=== PATIENT | female | born 1990 | race American Indian/Alaskan Native ===

== ENCOUNTER 2019-12-01 21:27 | Inpatient (IN) | payer MEDICAID ==
--- NOTE | 2019-12-01 23:34 | Ultrasound Report ---
Limited OB ultrasound INDICATION: Amniotic fluid leakage FINDINGS: There is a single intrauterine in a cephalic presentation. Amniotic fluid index i s 6.2 cm which is decreased. heart rate is 116 bpm. IMPRESSION: The amniotic fluid index is 6.2 cm which is decreased. Signer Name: Chirag Harrell MD Signed: 12/01/2019 11:29 PM Workstation Name: [id number]
[2019-12-01] MEDS ORDERED: ePHEDrine SULFATE 50 MG/1 ML INJ IV PRN (23:48)
[2019-12-01] MEDS ORDERED: MINERAL OIL 30 ML ORAL LIQD PO PRN (23:48)
[2019-12-01] MEDS ORDERED: TERBUTALINE 1 MG/1 ML INJ SUB-Q PRN (23:48)
[2019-12-01] MEDS ORDERED: TERBUTALINE 1 MG/1 ML INJ IVP PRN (23:48)
[2019-12-01] MEDS ORDERED: LIDOCAINE (2%) 20 MG/1 ML VIAL 20 ML MDV INFILTRATI ONE (23:48)
[2019-12-02 01:56] LABS: Hematocrit 30.3 % (30.3-42.9); Hemoglobin 10.2 gm/dl (10.1-14.3); Mean Corpuscular HGB Conc 34 % (30-34); Mean Corpuscular Volume 99 fl (79-97); Platelet Count 165 K/mm3 (140-440); Red Blood Count 3.06 M/mm3 (3.65-5.03); Red Cell Distribution Width 13.4 % (13.2-15.2)
[2019-12-02] MEDS: LACTATED RINGERS 1,000 ML IV SCH ×3 (02:26→18:43)
[2019-12-02] MEDS ORDERED: OXYTOCIN DRIP 30,000 MILLIUNITS/500 ML BAG IV ONE (10:00)
[2019-12-02] MEDS ORDERED: BUTORPHANOL 2 MG/1 ML INJ IV ONE (12:37)
--- NOTE | 2019-12-02 15:04 | History and Physical Report ---
History of Present Illness Date of examination: 12/02/19 Date of admission: 12/01/19 23:57 Chief complaint: Admitted with SROM 2030HRS 12/01/2019. Uneventful . History of present illness: Admitted with SROM 2030HRS 12/01/2019. Uneventful . NOMAN 12/12/2019 Past History Past Medical History: no pertinent history - Obstetrical History Expected Date of Delivery: 12/12/19 Actual Gestation: 38 Week(s) 4 Day(s) : 4 Para: 2 Medications and Allergies Allergies Allergy/AdvReac Type Severity Reaction Status Date / Time No Known Allergies Allergy Verified 12/01/19 21:51 Home Medications Medication Instructions Recorded Confirmed Last Taken Type Vitamin 1 tab PO DAILY 12/02/19 12/02/19 11/30/19 10:00 History 1 Active Meds: Active Medications Ephedrine Sulfate (Ephedrine Sulfate) 10 mg IV Q2M PRN PRN Reason: Hypotension Oxytocin/Sodium Chloride (Pitocin/Ns 20 Unit/1000ml Drip) 20 units in 1,000 mls @ 125 mls/hr IV DIRECT JESSY Lactated Ringer's (Lactated Ringers) 1,000 mls @ 125 mls/hr IV DIRECT JESSY Last Admin: 12/02/19 11:52 Dose: 125 mls/hr Documented by: Oxytocin/Sodium Chloride (Pitocin/Ns 30 Unit/500ml) 30,000 milliunits in 500 mls @ 2 mls/hr IV DIRECT ONE; Protocol Stop: 12/12/19 19:59 Last Titration: 12/02/19 12:52 Dose: 15 milliunits/min, 15 mls/hr Documented by: Mineral Oil (Mineral Oil) 30 ml PO QHS PRN PRN Reason: Constipation Terbutaline Sulfate (Brethine) 0.25 mg SUB-Q ONCE PRN PRN Reason: Hyperstimulation/Hypertonicity Terbutaline Sulfate (Brethine) 0.25 mg IVP ONCE PRN PRN Reason: Hyperstimulation/Hypertonicity Review of Systems All systems: negative - Vital Signs Vital signs: Vital Signs Temp 98.6 F 12/01/19 21:55 Temp Pulse Resp BP Pulse Ox 98.2 F 85 18 96/52 99 12/02/19 10:04 12/02/19 14:55 12/02/19 10:04 12/02/19 13:50 12/02/19 14:55 - Physical Exam Lungs: Positive: Normal air movement Abdomen: Positive: normal appearance, distention. Negative: tenderness Deep Tendon Reflex Grade: Normal +2 - Obstetrical FHR: category 1 Results Result Diagrams: 12/02/19 01:36 Abnormal lab results 12/02/19 Range/Units 01:36 WBC 12.4 H (4.5-11.0) K/mm3 RBC 3.06 L (3.65-5.03) M/mm3 MCV 99 H (79-97) fl MCH 33 H (28-32) pg All other labs normal. Assessment and Plan - Patient Problems (1) Term Current Visit: Yes Status: Acute Plan to address problem: Admitted for conduct of labor and delivery.Currently on pitocin.
[2019-12-03] MEDS: LACTATED RINGERS 1,000 ML IV SCH (02:55)
--- NOTE | 2019-12-03 10:31 | Progress Note ---
Assessment and Plan - Patient Problems (1) 38 weeks gestation of Current Visit: Yes Status: Acute (2) SROM (spontaneous rupture of membranes) Current Visit: Yes Status: Acute (3) Encounter for induction of labor Current Visit: Yes Status: Acute Plan to address problem: Continue current management Oxytocin @ 20 mu/min. Initiated 12/02 @ 10am. Order given to discontinue Pitocin and for patient to have a regular diet and take a shower Will restart Pitocin per protocol Anticipate vaginal delivery Subjective - Subjective Date of service: 12/03/19 Principal diagnosis: IUP @ 38w6d; SROM Interval history: see H&P Patient reports: loss of fluid, movement normal, no vaginal bleeding, no contractions Objective - Vital Signs Vital Signs: Vital Signs - 12hr 12/02/19 12/02/19 12/02/19 22:21 22:26 22:31 Temperature Pulse Rate 97 H 91 H 92 H Blood Pressure O2 Sat by Pulse 98 97 97 Oximetry 12/02/19 12/02/19 12/02/19 22:36 22:41 22:46 Temperature Pulse Rate 88 94 H 93 H Blood Pressure O2 Sat by Pulse 97 97 98 Oximetry 12/02/19 12/02/19 12/02/19 22:51 22:56 23:01 Temperature Pulse Rate 92 H 84 86 Blood Pressure O2 Sat by Pulse 97 97 99 Oximetry 12/02/19 12/02/19 12/02/19 23:05 23:06 23:11 Temperature Pulse Rate 85 95 H 92 H Blood Pressure 103/44 O2 Sat by Pulse 99 99 Oximetry 12/02/19 12/02/19 12/02/19 23:16 23:18 23:21 Temperature Pulse Rate 89 86 85 Blood Pressure O2 Sat by Pulse 98 87 90 Oximetry 12/02/19 12/02/19 12/02/19 23:26 23:31 23:36 Temperature Pulse Rate 94 H 76 78 Blood Pressure O2 Sat by Pulse 94 98 98 Oximetry 12/02/19 12/02/19 12/02/19 23:41 23:46 23:51 Temperature Pulse Rate 81 80 90 Blood Pressure O2 Sat by Pulse 98 97 97 Oximetry 12/02/19 12/03/19 12/03/19 23:56 00:01 00:05 Temperature Pulse Rate 83 76 79 Blood Pressure 83/44 O2 Sat by Pulse 97 98 Oximetry 01/27/20 01/27/20 01/27/20 00:06 00:11 00:16 Temperature Pulse Rate 95 H 79 78 Blood Pressure O2 Sat by Pulse 99 98 98 Oximetry 12/03/19 12/03/19 12/03/19 00:21 00:26 00:31 Temperature Pulse Rate 74 85 76 Blood Pressure O2 Sat by Pulse 98 97 99 Oximetry 12/03/19 12/03/19 12/03/19 00:36 00:41 00:46 Temperature Pulse Rate 74 87 74 Blood Pressure O2 Sat by Pulse 99 99 99 Oximetry 12/03/19 12/03/19 12/03/19 00:51 00:56 01:01 Temperature Pulse Rate 82 79 81 Blood Pressure O2 Sat by Pulse 99 99 99 Oximetry 12/03/19 12/03/19 12/03/19 01:05 01:06 01:11 Temperature Pulse Rate 77 82 85 Blood Pressure 95/51 O2 Sat by Pulse 100 98 Oximetry 12/03/19 12/03/19 12/03/19 01:16 01:21 01:23 Temperature Pulse Rate 83 84 93 H Blood Pressure O2 Sat by Pulse 99 99 81 L Oximetry 12/03/19 12/03/19 12/03/19 01:32 01:37 01:42 Temperature Pulse Rate 92 H 77 69 Blood Pressure O2 Sat by Pulse 100 98 99 Oximetry 12/03/19 12/03/19 12/03/19 01:47 01:52 01:57 Temperature Pulse Rate 75 76 80 Blood Pressure O2 Sat by Pulse 99 100 99 Oximetry 12/03/19 12/03/19 12/03/19 02:02 02:07 02:09 Temperature 98.2 F Pulse Rate 85 83 Blood Pressure 91/54 O2 Sat by Pulse 98 98 Oximetry 12/03/19 12/03/19 12/03/19 02:12 02:17 02:22 Temperature Pulse Rate 86 87 84 Blood Pressure O2 Sat by Pulse 98 99 98 Oximetry 12/03/19 12/03/19 12/03/19 02:27 02:32 02:37 Temperature Pulse Rate 85 80 77 Blood Pressure O2 Sat by Pulse 98 98 98 Oximetry 12/03/19 12/03/19 12/03/19 02:42 02:47 02:52 Temperature Pulse Rate 81 89 82 Blood Pressure O2 Sat by Pulse 99 98 99 Oximetry 12/03/19 12/03/19 12/03/19 02:57 03:02 03:05 Temperature Pulse Rate 81 89 83 Blood Pressure 89/50 O2 Sat by Pulse 98 98 Oximetry 12/03/19 12/03/19 12/03/19 03:07 03:12 03:17 Temperature Pulse Rate 81 84 84 Blood Pressure O2 Sat by Pulse 98 98 98 Oximetry 12/03/19 12/03/19 12/03/19 03:22 03:27 03:32 Temperature Pulse Rate 82 81 86 Blood Pressure O2 Sat by Pulse 98 97 98 Oximetry 12/03/19 12/03/19 12/03/19 03:37 03:42 03:47 Temperature Pulse Rate 85 84 91 H Blood Pressure O2 Sat by Pulse 98 98 98 Oximetry 12/03/19 12/03/19 12/03/19 03:52 03:57 04:02 Temperature Pulse Rate 85 84 79 Blood Pressure O2 Sat by Pulse 98 98 98 Oximetry 12/03/19 12/03/19 12/03/19 04:05 04:07 04:12 Temperature Pulse Rate 66 73 72 Blood Pressure 92/50 O2 Sat by Pulse 98 98 Oximetry 12/03/19 12/03/19 12/03/19 04:17 04:22 04:27 Temperature Pulse Rate 77 82 90 Blood Pressure O2 Sat by Pulse 98 98 100 Oximetry 12/03/19 12/03/19 12/03/19 04:32 04:37 04:42 Temperature Pulse Rate 75 76 79 Blood Pressure O2 Sat by Pulse 98 100 98 Oximetry 12/03/19 12/03/19 12/03/19 04:47 04:52 04:57 Temperature Pulse Rate 74 72 71 Blood Pressure O2 Sat by Pulse 99 99 99 Oximetry 12/03/19 12/03/19 12/03/19 05:02 05:05 05:07 Temperature Pulse Rate 76 75 81 Blood Pressure 87/50 O2 Sat by Pulse 99 99 Oximetry 12/03/19 12/03/19 12/03/19 05:12 05:17 05:22 Temperature Pulse Rate 76 76 78 Blood Pressure O2 Sat by Pulse 99 99 99 Oximetry 12/03/19 12/03/19 12/03/19 05:27 05:32 05:37 Temperature Pulse Rate 76 75 88 Blood Pressure O2 Sat by Pulse 99 98 98 Oximetry 12/03/19 12/03/19 12/03/19 05:42 05:47 05:52 Temperature Pulse Rate 85 88 79 Blood Pressure O2 Sat by Pulse 99 100 100 Oximetry 12/03/19 12/03/19 12/03/19 05:57 06:02 06:05 Temperature Pulse Rate 79 73 80 Blood Pressure 103/65 O2 Sat by Pulse 99 100 Oximetry 12/03/19 12/03/19 12/03/19 06:07 06:12 06:17 Temperature Pulse Rate 78 84 79 Blood Pressure O2 Sat by Pulse 99 100 99 Oximetry 12/03/19 12/03/19 12/03/19 06:22 06:27 06:32 Temperature Pulse Rate 82 81 77 Blood Pressure O2 Sat by Pulse 99 99 100 Oximetry 12/03/19 12/03/19 12/03/19 06:37 06:42 06:47 Temperature Pulse Rate 82 81 80 Blood Pressure O2 Sat by Pulse 100 99 99 Oximetry 12/03/19 12/03/19 12/03/19 07:37 07:42 07:44 Temperature Pulse Rate 93 H 85 88 Blood Pressure 106/69 O2 Sat by Pulse 100 99 Oximetry 12/03/19 12/03/19 12/03/19 07:47 07:52 07:57 Temperature Pulse Rate 87 95 H 86 Blood Pressure O2 Sat by Pulse 98 99 98 Oximetry 12/03/19 12/03/19 12/03/19 08:02 08:05 08:07 Temperature Pulse Rate 95 H 88 92 H Blood Pressure 114/64 O2 Sat by Pulse 100 99 Oximetry 12/03/19 12/03/19 12/03/19 08:12 08:17 08:22 Temperature Pulse Rate 105 H 109 H 102 H Blood Pressure O2 Sat by Pulse 99 98 99 Oximetry 12/03/19 12/03/19 12/03/19 08:25 08:27 08:32 Temperature 98.1 F Pulse Rate 105 H 91 H Blood Pressure O2 Sat by Pulse 98 99 Oximetry 12/03/19 12/03/19 12/03/19 08:37 08:42 08:47 Temperature Pulse Rate 104 H 93 H 106 H Blood Pressure O2 Sat by Pulse 99 99 99 Oximetry 12/03/19 12/03/19 12/03/19 08:52 08:57 09:02 Temperature Pulse Rate 99 H 98 H 102 H Blood Pressure O2 Sat by Pulse 99 99 98 Oximetry 12/03/19 12/03/19 12/03/19 09:05 09:07 09:12 Temperature Pulse Rate 109 H 112 H 105 H Blood Pressure 108/62 O2 Sat by Pulse 99 99 Oximetry 12/03/19 12/03/19 12/03/19 09:17 09:22 09:27 Temperature Pulse Rate 99 H 94 H 111 H Blood Pressure O2 Sat by Pulse 98 98 99 Oximetry 12/03/19 12/03/19 12/03/19 09:32 09:37 09:42 Temperature Pulse Rate 109 H 109 H 105 H Blood Pressure O2 Sat by Pulse 98 99 98 Oximetry 12/03/19 12/03/19 12/03/19 09:47 09:52 09:57 Temperature Pulse Rate 102 H 115 H 104 H Blood Pressure O2 Sat by Pulse 99 98 98 Oximetry 12/03/19 12/03/19 12/03/19 10:02 10:06 10:07 Temperature Pulse Rate 107 H 120 H 110 H Blood Pressure 118/68 O2 Sat by Pulse 98 98 Oximetry 12/03/19 10:12 Temperature Pulse Rate 109 H Blood Pressure O2 Sat by Pulse 100 Oximetry - Exam FHR: auscultation normal, category 1 FHR comments: baseline 140, moderate variability, 15x15 accels, no decels Uterine Contraction Monitor Mode: External Cervical Dilatation: 2.5 Cervical Effacement Percentage: 50 station: -2 Uterine Contraction Pattern: Irregular - Labs Labs: Abnormal Labs 12/02/19 01:36 WBC 12.4 H RBC 3.06 L MCV 99 H MCH 33 H
[2019-12-03] MEDS ORDERED: BUTORPHANOL 2 MG/1 ML INJ IV PRN (16:02)
[2019-12-03] MEDS ORDERED: fentaNYL 100 MCG/2 ML INJ IV ONE (16:14)
[2019-12-03] MEDS ORDERED: DEXMEDETOMIDINE 200 MCG/2 ML VIAL IV ONE (17:52)
--- NOTE | 2019-12-03 18:14 | Anesthesia Consultation ---
Anesthesia Consult and Med Hx Date of service: 12/03/19 - Airway Anesthetic Teeth Evaluation: Good ROM Head & Neck: Adequate Mental/Hyoid Distance: Adequate Mallampati Class: Class II Intubation Access Assessment: Good - Pulmonary Exam CTA: Yes - Cardiac Exam Cardiac Exam: RRR - Pre-Operative Health Status ASA Pre-Surgery Classification: ASA2, Emergency Proposed Anesthetic Plan: Epidural - Pulmonary Hx Asthma: No (last inhaler use 1st trimester) COPD: No Hx Pneumonia: No - Cardiovascular System Hx Hypertension: No - Central Nervous System Hx Seizures: No Hx Psychiatric Problems: No - Endocrine Hx Renal Disease: No Hx End Stage Renal Disease: No Hx Hypothyroidism: No Hx Hyperthyroidism: No - Hematic Hx Anemia: No Hx Sickle Cell Disease: No - Other Systems Hx Alcohol Use: No
[2019-12-03] MEDS ORDERED: ePHEDrine SULFATE 50 MG/1 ML INJ IV PRN (18:15)
[2019-12-03] MEDS ORDERED: NALOXONE 2 MG/2 ML INJ IV PRN (18:15)
[2019-12-03] MEDS ORDERED: fentaNYL-BUPIV 2 MCG/ML-0.125% 200 MCG/100 ML BAG EPIDURAL ONE (18:16)
[2019-12-03] MEDS ORDERED: BUPIVACAINE/PF (0.5%) 5 MG/1 ML 10 ML VIAL INFILTRATI ONE (18:55)
[2019-12-03] MEDS ORDERED: fentaNYL-BUPIV 2 MCG/ML-0.125% 200 MCG/100 ML BAG EPIDURAL SCH (19:00)
--- NOTE | 2019-12-03 19:45 | Procedure Note ---
OB Delivery Note - Delivery Date of Delivery: 12/03/19 (1922) Surgeon: MORRIS MARC (CN) Estimated blood loss: 100cc - Vaginal Delivery presentation: vertex Delivery position: OA Intrapartum events: none Delivery induction: oxytocin Delivery augmentation: rupture of membranes (AROM @ 14:05, clear), pitocin Delivery monitor: external FHT, external uterine Route of delivery: (19:23) Delivery placenta: spontaneous (19:28) Delivery cord: 3 umbilical vessels Episiotomy: none Delivery laceration: none Anesthesia: epidural Delivery comments: of a vigorous term 6 lbs 14 oz male on 12/03/19 @ 19:23. Baby placed [id number] on maternal abdomen. After 3 mins, umbilical cord double-clamped by me and cut by FOB. Spontaneous delivery of placenta @ 19:28. Small lochia noted. Fundal massage and IV Pitocin bolus initiated. Fundus F/ML/U. Placenta intact, was discarded. Perineum intact. No lacerations present. Mom and baby in stable condition. - Infant A at 1 minute: 8 at 5 minutes: 9 Infant Gender: Male (6 lbs 14 oz (3141 gm); 19 in)
[2019-12-03] MEDS ORDERED: ONDANSETRON 4 MG/2 ML INJ IV PRN (19:47)
[2019-12-03] MEDS ORDERED: diphenhydrAMINE 25 MG CAP PO PRN (19:47)
[2019-12-03] MEDS ORDERED: ACETAMINOPHEN 325 MG TAB PO PRN (19:47)
[2019-12-03] MEDS ORDERED: WITCH HAZEL/ GLYCERIN PAD TP PRN (19:47)
[2019-12-03] MEDS ORDERED: LANOLIN/ZINC/DIMETHICONE (LANSINOH) 7 GM TP PRN (19:47)
[2019-12-03] MEDS ORDERED: PROMETHAZINE 25 MG TAB PO PRN (19:47)
[2019-12-03] MEDS ORDERED: MAGNESIUM HYDROXIDE (MOM) ORAL LIQD UDC PO PRN (19:47)
[2019-12-03] MEDS ORDERED: PROMETHAZINE 25 MG RECT SUPP PR PRN (19:47)
[2019-12-03] MEDS: OXYTOCIN 20 UNIT/1000ML DRIP 20 UNITS/1,000 ML BAG IV SCH ×2 (20:43→20:45)
[2019-12-04] MEDS: IBUPROFEN 600 MG TAB PO SCH ×3 (02:01→21:36)
[2019-12-04 07:44] LABS: Hematocrit 27.7 % (30.3-42.9); Hemoglobin 9.5 gm/dl (10.1-14.3)
[2019-12-04] MEDS: PRENATAL VIT27-FE FUMARATE-FOLIC ACID VIT TAB PO SCH (09:51)
[2019-12-04] MEDS: HYDROcodone/ACETAMINOPHEN 5-325 MG TAB PO PRN ×2 (09:51→17:54)
[2019-12-04] MEDS: FERROUS SULFATE 325 MG TAB PO SCH (09:58)
--- NOTE | 2019-12-04 11:17 | Progress Note ---
Assessment and Plan - Patient Problems (1) Status post normal vaginal delivery Current Visit: Yes Status: Acute Plan to address problem: D/C home today F/U at office in 6 wks for routine PP visit (2) Anemia Current Visit: Yes Status: Acute Qualifiers: Anemia type: iron deficiency Plan to address problem: Asymptomatic Continue daily oral iron supplementation as directed with OJ Increase iron rich foods into diet Subjective - Subjective Date of service: 12/04/19 Principal diagnosis: S/P , PPD#1; Anemia Interval history: See admission H&P; OB delivery summary and PP progress notes Patient reports: appetite normal, voiding normally, pain well controlled, flatus, ambulating normally, other (Desires to go home today) : doing well, bottle feeding (and ) Objective - Vital Signs Latest vital signs: Vital Signs Temp Pulse Resp BP Pulse Ox 12/04/19 08:55 98.3 F 79 16 99/68 99 12/04/19 02:01 18 12/04/19 00:33 98.8 F 77 20 101/59 100 12/03/19 23:49 173 H 81 L 12/03/19 23:48 122 H 81 L 12/03/19 23:45 91 H 98/53 12/03/19 23:44 81 L 12/03/19 23:43 71 84 12/03/19 23:38 25 L 95 12/03/19 23:33 86 100 12/03/19 23:29 74 110/59 12/03/19 23:28 85 100 12/03/19 23:23 86 100 12/03/19 23:18 96 H 100 12/03/19 23:14 85 109/62 12/03/19 23:13 102 H 99 12/03/19 23:08 75 100 12/03/19 23:03 97 H 100 12/03/19 22:59 84 110/68 12/03/19 22:58 93 H 100 12/03/19 22:56 88 93 12/03/19 22:53 86 100 12/03/19 22:48 90 99 12/03/19 22:43 79 97 12/03/19 22:40 62 94 12/03/19 22:38 113 H 98 12/03/19 22:33 83 99 12/03/19 22:29 79 111/60 12/03/19 22:28 81 99 12/03/19 22:23 79 100 12/03/19 22:18 93 H 100 12/03/19 22:14 90 105/61 12/03/19 22:13 93 H 100 12/03/19 22:08 84 99 12/03/19 22:03 75 101/59 100 12/03/19 21:58 151 H 84 12/03/19 21:57 134 H 85 12/03/19 21:52 70 100 12/03/19 21:47 79 100 12/03/19 21:42 89 100 12/03/19 21:37 65 100 12/03/19 21:32 76 100 12/03/19 21:29 70 104/64 12/03/19 21:27 73 100 12/03/19 21:22 78 100 12/03/19 21:20 97.4 F L 12/03/19 21:17 87 100 12/03/19 21:14 71 107/66 12/03/19 21:12 76 100 12/03/19 21:07 66 100 12/03/19 21:02 75 100 12/03/19 21:00 72 102/62 12/03/19 20:57 74 100 12/03/19 20:52 76 100 12/03/19 20:47 72 98 12/03/19 20:44 75 96/57 12/03/19 20:42 82 100 12/03/19 20:37 81 99 12/03/19 20:32 77 99 12/03/19 20:29 76 104/61 12/03/19 20:27 85 99 12/03/19 20:22 84 100 12/03/19 20:17 78 99 12/03/19 20:14 86 104/65 12/03/19 20:12 86 98 12/03/19 20:07 75 98 12/03/19 20:02 83 100 12/03/19 19:59 80 109/69 12/03/19 19:57 87 98 12/03/19 19:52 85 99 12/03/19 19:47 78 98 12/03/19 19:44 87 103/60 12/03/19 19:42 84 99 12/03/19 19:37 91 H 97 12/03/19 19:32 89 98 12/03/19 19:29 94 H 111/61 12/03/19 19:27 93 H 99 12/03/19 19:22 99 H 100 12/03/19 19:21 96 H 120/72 12/03/19 19:17 93 H 100 12/03/19 19:12 91 H 100 12/03/19 19:07 76 98 12/03/19 19:02 96 H 99 12/03/19 18:57 79 100 12/03/19 18:52 81 99 12/03/19 18:48 74 118/67 12/03/19 18:47 80 99 12/03/19 18:46 78 116/67 12/03/19 18:44 82 109/60 12/03/19 18:42 79 105/60 98 12/03/19 18:40 83 108/58 12/03/19 18:38 81 102/56 12/03/19 18:37 80 98 12/03/19 18:36 85 109/59 12/03/19 18:34 79 101/57 12/03/19 18:32 78 102/57 98 12/03/19 18:30 81 107/58 12/03/19 18:28 83 106/56 12/03/19 18:27 86 98 12/03/19 18:26 82 105/55 12/03/19 18:24 87 108/57 12/03/19 18:22 83 106/58 99 12/03/19 18:20 84 107/61 12/03/19 18:18 88 110/57 12/03/19 18:17 93 H 99 12/03/19 18:16 89 110/56 12/03/19 18:14 83 110/57 12/03/19 18:12 93 H 114/63 99 12/03/19 18:10 86 122/67 12/03/19 18:08 84 117/64 12/03/19 18:07 88 100 12/03/19 18:06 84 119/66 12/03/19 18:04 100 H 119/63 12/03/19 18:02 93 H 117/63 100 12/03/19 18:00 99 H 109/59 12/03/19 17:58 106 H 123/75 12/03/19 17:57 109 H 100 12/03/19 17:13 88 114/65 12/03/19 16:40 98.0 F 12/03/19 16:06 102 H 113/62 12/03/19 16:03 96 H 100 12/03/19 15:58 108 H 99 12/03/19 15:53 89 100 12/03/19 15:48 101 H 100 12/03/19 15:43 99 H 100 12/03/19 15:38 114 H 99 12/03/19 15:33 107 H 100 12/03/19 15:28 91 H 99 12/03/19 15:23 90 99 12/03/19 15:18 90 100 12/03/19 15:13 90 99 12/03/19 15:08 101 H 100 12/03/19 15:05 99 H 112/65 12/03/19 15:03 94 H 99 12/03/19 14:58 79 100 12/03/19 14:53 95 H 100 12/03/19 14:48 92 H 100 12/03/19 14:43 91 H 99 12/03/19 14:38 88 99 12/03/19 14:33 98 H 99 12/03/19 14:28 92 H 100 12/03/19 14:23 96 H 100 12/03/19 14:18 103 H 100 12/03/19 14:13 101 H 100 12/03/19 14:08 97 H 100 12/03/19 14:05 117 H 127/70 12/03/19 14:03 87 100 12/03/19 13:58 99 H 100 12/03/19 13:53 104 H 100 12/03/19 13:48 94 H 100 12/03/19 13:43 86 99 12/03/19 13:38 86 99 12/03/19 13:33 93 H 99 12/03/19 13:28 92 H 99 12/03/19 13:23 91 H 99 12/03/19 13:18 91 H 99 12/03/19 13:13 82 99 12/03/19 13:08 95 H 99 12/03/19 13:06 79 100/58 12/03/19 13:03 92 H 99 12/03/19 13:00 97.1 F L 12/03/19 12:58 97 H 99 12/03/19 12:53 89 99 12/03/19 12:48 89 98 12/03/19 12:43 84 98 12/03/19 12:38 83 98 12/03/19 12:33 92 H 99 12/03/19 12:28 92 H 99 12/03/19 12:23 100 H 99 12/03/19 12:18 90 99 12/03/19 12:13 89 99 12/03/19 12:08 85 100 12/03/19 12:06 93 H 103/64 12/03/19 12:03 87 99 12/03/19 11:58 94 H 99 12/03/19 11:53 102 H 99 12/03/19 11:48 92 H 99 12/03/19 11:43 94 H 98 12/03/19 11:38 98 H 98 12/03/19 11:33 98 H 99 12/03/19 11:28 95 H 98 12/03/19 11:23 93 H 99 12/03/19 11:18 89 98 Intake and Output 12/03/19 12/04/19 12/04/19 23:59 07:59 15:59 Intake Total 0 Output Total 600 700 Balance -600 -700 Intake: IV 0 PITOCin/NS 20 UNIT/1000ML 0 DRIP 20 units In 1,000 ml @ 125 mls/hr IV DIRECT JESSY Rx#:[id number] Output: Urine 600 700 Indwelling Catheter 600 Void 700 Other: Total, Output Amount 200 700 # Voids Void 1 Estimated Blood Loss 100 - Exam Breasts: Present: normal Cardiovascular: Present: Regular rate Lungs: Present: Normal air movement Abdomen: Present: soft Uterus: Present: firm, fundal height below umbilicus (U-1) Extremities: Present: normal Deep Tendon Reflex Grade: Normal +2 - Labs Labs: Abnormal lab results 12/04/19 Range/Units 06:44 Hgb 9.5 L (10.1-14.3) gm/dl Hct 27.7 L (30.3-42.9) %
--- NOTE | 2019-12-04 11:22 | Discharge Summary ---
Providers - Providers Date of Admission: 12/01/19 23:57 Date of discharge: 12/04/19 Attending physician: SHELBY CAGE MD Primary care physician: SHELBY CAGE MD Hospitalization Reason for admission: active labor, IUP at term Delivery: Episiotomy: none Laceration: none Other procedures: none complications: none Discharge diagnosis: IUP at term delivered, other (Anemia) [place] baby: male Hospital course: See admission H&P; OB delivery summary and PP progress notes Condition at discharge: Stable Disposition: DC-01 TO HOME OR SELFCARE - Discharge Diagnoses (1) Status post normal vaginal delivery Status: Acute (2) Anemia Status: Acute Qualifiers: Anemia type: iron deficiency Plan - Discharge Medications Prescriptions: Ferrous Sulfate [Feosol 325 MG tab] 325 mg PO QDAY 30 Days #30 tablet - Provider Discharge Summary Activity: routine, no sex for 6 weeks, no heavy lifting 4 weeks, no strenuous exercise Diet: other (Iron rich diet) Instructions: routine Additional instructions: [] Smoking cessation referral if applicable(refer to patient education folder for contact #) [] Refer to [facility] Booklet Call your doctor immediately for: * Fever > 100.5 * Heavy vaginal bleeding ( >1 pad per hour) * Severe persistent headache * Shortness of breath * Reddened, hot, painful area to leg or breast - Follow up plan Follow up: SHELBY CAGE MD [Primary Care Provider] - 6 Weeks
--- NOTE | 2019-12-04 15:56 | Post Anesthesia Evaluation ---
- Post Anesthesia Evaluation Patient Participated: Yes Airway Patent: Yes Stable Respiratory Function: Yes Nausea/Vomiting: No Temp > 96.8F: Yes Pain Manageable: Yes Adequeate Hydration: Yes Anesthesia Complications: No Block Receding Appropriately: Yes Patient on Ventilator: No
[2019-12-05] MEDS ORDERED: TETANUS,DIPH,PERTUSS(ACELL) VACCINE 0.5 ML SYRINGE IM ONE (06:00)
[2019-12-05] MEDS: IBUPROFEN 600 MG TAB PO SCH (06:03)
[2019-12-05] MEDS: HYDROcodone/ACETAMINOPHEN 5-325 MG TAB PO PRN (11:56)
[2019-12-05] MEDS: PRENATAL VIT27-FE FUMARATE-FOLIC ACID VIT TAB PO SCH (11:56)
[2019-12-05] MEDS: FERROUS SULFATE 325 MG TAB PO SCH (11:56)
[2019-12-05 13:30] VITALS: BP 106/62
[2019-12-05] MEDS ORDERED: BENZOCAINE/MENTHOL 20/0.5% TOP SPRAY 56 GM TP PRN (14:00)
== END 2019-12-05 16:00 | disposition home or self-care (01) | DRG 775 ==
LOC: TRG 21:27 → LD 23:57 → UNDOADMOB 23:57 → OBSVTOIN 23:57 → INTOOBSV 23:57 → OBSVTOIN 12-03 20:15 → LD 12-03 20:15 → OB 12-04 00:21 → LD 12-04 00:21
PROVIDERS: ADMIT Obstetrics & Gynecology; ATTEND Obstetrics & Gynecology
PROC: 10E0XZZ Delivery of Products of Conception, External Approach (ICD-10-PCS; principal; 2019-12-03)
PROC: 10907ZC Drainage of Amniotic Fluid, Therapeutic from Products of Conception, Via Natural or Artificial Opening (ICD-10-PCS; 2019-12-03)
PROC: 3E033VJ Introduction of Other Hormone into Peripheral Vein, Percutaneous Approach (ICD-10-PCS; 2019-12-03)
PROC: 3E0R3BZ Introduction of Anesthetic Agent into Spinal Canal, Percutaneous Approach (ICD-10-PCS; 2019-12-03)
PROC: 00HU33Z Insertion of Infusion Device into Spinal Canal, Percutaneous Approach (ICD-10-PCS; 2019-12-03)
PROC: 3E0234Z Introduction of Serum, Toxoid and Vaccine into Muscle, Percutaneous Approach (ICD-10-PCS; 2019-12-05)
DX: O99.02 Anemia complicating childbirth (principal); Z3A.38 38 weeks gestation of pregnancy; Z37.0 Single live birth; D50.9 Iron deficiency anemia, unspecified; Z23 Encounter for immunization
CPT/HCPCS: 36415; 76815; 85014; 85018; 85027; 86850; 86900; 86901; 90471; 90715; G0378; J0595; J2590; J3490; J7120